=== PATIENT | male | born 1985 | race American Indian/Alaskan Native ===

== ENCOUNTER 2017-05-14 14:57 | Emergency (ER) | payer SELFPAY ==
[2017-05-14 16:32] LABS: Alanine Aminotransferase 16 units/L (7-56); Albumin 4.4 g/dL (3.9-5); Albumin/Globulin Ratio 1.8 %; Alkaline Phosphatase 69 units/L (35-129); Anion Gap 17 mmol/L; BUN/Creatinine Ratio 11.25; Blood Urea Nitrogen 9 mg/dL (9-20); Calcium 8.9 mg/dL (8.4-10.2); Carbon Dioxide 26 mmol/L (22-30); Glucose 113 mg/dL (75-100); Lipase 27 units/L (13-60); Potassium 4.1 mmol/L (3.6-5.0); Sodium 143 mmol/L (137-145); Total Protein 6.8 g/dL (6.3-8.2)
[2017-05-14 16:50] LABS: Basophils % (Auto) 0.7 % (0.0-1.8); Eosinophils % (Auto) 3.8 % (0.0-4.3); Hematocrit 43.8 % (35.5-45.6); Hemoglobin 14.5 gm/dl (11.8-15.2); Mean Corpuscular HGB Conc 33 % (32-34); Mean Corpuscular Hemoglobin 28 pg (28-32); Mean Corpuscular Volume 85 fl (84-94); Platelet Count 187 K/mm3 (140-440); Red Blood Count 5.14 M/mm3 (3.65-5.03); Red Cell Distribution Width 13.9 % (13.2-15.2); White Blood Count 4.7 K/mm3 (4.5-11.0)
[2017-05-14 17:54] LABS: Bilirubin,Urine NEG (Negative); Blood,Urine SM (Negative); Ketones,Urine TR mg/dL (Negative); Leukocyte Esterase,Urine NEG (Negative); Mucus,Urine 3+ /HPF; Nitrite,Urine NEG (Negative); Urobilinogen,Urine < 2.0 mg/dL (<2.0)
[2017-05-14 17:56] LABS: Creatine Kinase 176 units/L (55-170)
[2017-05-14] MEDS ORDERED: TORADOL IM ONE (18:06)
[2017-05-14 18:22] VITALS: BP 130/76
--- NOTE | 2017-05-14 18:40 | Ultrasound Report ---
FINAL REPORT EXAM: US ABDOMEN COMPLETE HISTORY: abd pain TECHNIQUE: Ultrasound examination of the abdomen PRIORS: None. FINDINGS: No abnormality in visualized portion of aorta, IVC, and liver. Normal-appearing right kidney, left kidney, spleen, and visualized portion of pancreas. No evidence of ascites. Normal gallbladder wall thickness. No pericholecystic fluid. No evidence of gallstone. Technologist reports a positive Leyva sign. Normal diameter common bile duct. IMPRESSION: Technologist reports positive Leyva sign. No definite sonographic gallbladder abnormality
--- NOTE | 2017-05-14 21:18 | XRay Report ---
FINAL REPORT EXAM: XR RIBS UNI W PA CHEST 3 RT HISTORY: rib pain TECHNIQUE: PA chest radiograph, AP and oblique views of the right rib cage PRIORS: None. FINDINGS: No mediastinal shift. Cardiac silhouette is not enlarged. No pneumothorax, effusion, or focal pulmonary opacity. No acute skeletal finding. IMPRESSION: No acute pulmonary finding or displaced rib fracture.
--- NOTE | 2017-05-14 22:30 | Emergency Department Report ---
Entered by RICARDA SOLER, acting as scribe for DEJUAN SHRESTHA NP. ED Abdominal Pain HPI - General Chief Complaint: Abdominal Pain Stated Complaint: SHARP PAIN IN RIB CAGE Time Seen by Provider: 05/14/17 15:49 Source: patient Mode of arrival: Ambulatory Limitations: No Limitations - History of Present Illness Initial Comments: This is a 32 year old male that is non-toxic, non ill appearing, in no acute distress with c/o sharp RUQ pain and right rib cage pain radiating into back 3 days ago. Patient reports he was sitting on the couch when the pain started. Patient reports 1 episode of vomiting 3 days ago. Patient denies headache, chest pain, stiff neck, nausea, vomiting, chills, trauma, SOB, fever, cough, numbness, and tingling. Patient denies any recent travels or long car rides. NKDA. Denies any past medical history. MD Complaint: abdominal pain (RUQ) Onset/Timin -: Gradual, days(s) Location: RUQ Radiation: back (right lower) Migration to: no migration Severity: moderate Severity scale (0 -10): 4 Quality: sharp Consistency: constant Improves With: nothing Worsens With: nothing Associated Symptoms: vomiting (3 days ago). denies: nausea, diarrhea, fever, chills, constipation, dysuria, hematemesis, hematochezia, melena, hematuria, anorexia, syncope - Related Data Previous Rx's Medication Instructions Recorded Last Taken Type Cyclobenzaprine [Flexeril] 10 mg PO TID PRN #15 tablet 05/14/17 Unknown Rx Naproxen [Naprosyn TAB] 500 mg PO BID #15 tablet 05/14/17 Unknown Rx Allergies Allergy/AdvReac Type Severity Reaction Status Date / Time shellfish derived Allergy Anaphylaxis Verified 05/14/17 15:21 ED Review of Systems Comment: All other systems reviewed and negative Constitutional: chills. denies: fever Eyes: denies: eye pain, eye discharge, vision change ENT: denies: ear pain, throat pain Respiratory: denies: cough, shortness of breath, wheezing Cardiovascular: denies: chest pain, palpitations Endocrine: no symptoms reported Gastrointestinal: abdominal pain (RUQ). denies: nausea, diarrhea Genitourinary: denies: urgency, dysuria Musculoskeletal: back pain (radiates to right side). denies: joint swelling, arthralgia, myalgia Skin: denies: rash, lesions Neurological: denies: headache, weakness, paresthesias Psychiatric: denies: anxiety, depression Hematological/Lymphatic: denies: easy bleeding, easy bruising ED Past Medical Hx - Past Medical History Additional medical history: heart murmur - Surgical History Past Surgical History?: No - Social History Smoking Status: Current Every Day Smoker Substance Use Type: Marijuana - Medications Home Medications: Home Medications Medication Instructions Recorded Confirmed Last Taken Type Cyclobenzaprine [Flexeril] 10 mg PO TID PRN #15 tablet 05/14/17 Unknown Rx Naproxen [Naprosyn TAB] 500 mg PO BID #15 tablet 05/14/17 Unknown Rx ED Physical Exam - General Limitations: No Limitations General appearance: alert, in no apparent distress - Head Head exam: Present: atraumatic, normocephalic, normal inspection - Eye Eye exam: Present: normal appearance, PERRL, EOMI. Absent: scleral icterus, conjunctival injection, nystagmus, periorbital swelling, periorbital tenderness Pupils: Present: normal accommodation. Absent: irregular - ENT ENT exam: Present: normal exam, normal orophraynx, mucous membranes moist, TM's normal bilaterally, normal external ear exam - Neck Neck exam: Present: normal inspection, full ROM. Absent: tenderness, meningismus, lymphadenopathy, thyromegaly - Respiratory Respiratory exam: Present: normal lung sounds bilaterally. Absent: respiratory distress, wheezes, rales, rhonchi, stridor, chest wall tenderness, accessory muscle use, decreased breath sounds, prolonged expiratory - Cardiovascular Cardiovascular Exam: Present: regular rate, normal rhythm, normal heart sounds. Absent: bradycardia, tachycardia, irregular rhythm, systolic murmur, diastolic murmur, rubs, gallop - GI/Abdominal GI/Abdominal exam: Present: soft, normal bowel sounds. Absent: distended, tenderness, guarding, rebound, rigid, diminished bowel sounds, hyperactive bowel sounds, hypoactive bowel sounds, organomegaly, mass, bruit, pulsatile mass , hernia - Expanded GI/Abdominal Exam Expanded GI/Abdominal exam: Absent: psoas sign, obturator sign, heel tap sign, Leyva's sign, Rovsing's sign, tenderness at Mcburney's Point, ascites - Rectal Rectal exam: Present: deferred - Extremities Exam Extremities exam: Present: normal inspection, full ROM, normal capillary refill. Absent: tenderness, pedal edema, joint swelling, calf tenderness - Back Exam Back exam: Present: normal inspection, full ROM. Absent: tenderness, CVA tenderness (R), CVA tenderness (L), muscle spasm, paraspinal tenderness, vertebral tenderness, rash noted - Neurological Exam Neurological exam: Present: alert, oriented X3, CN II-XII intact, normal gait, reflexes normal - Psychiatric Psychiatric exam: Present: normal affect, normal mood - Skin Skin exam: Present: warm, dry, intact, normal color. Absent: rash ED Course Vital Signs 05/14/17 05/14/17 05/14/17 15:23 17:20 17:25 Temperature 98.7 F 98 F Pulse Rate 80 68 Respiratory 17 16 16 Rate Blood Pressure 131/87 Blood Pressure 130/76 [Right] O2 Sat by Pulse 98 99 99 Oximetry 05/14/17 18:15 Temperature Pulse Rate Respiratory 18 Rate Blood Pressure Blood Pressure [Right] O2 Sat by Pulse Oximetry - Reevaluation(s) Reevaluation #2: 05/14/17 17:56 Patient is talking in full sentence and watching TV with no signs of distress noted. - Consultations Consultation #1: 05/14/17 17:55 Dr. Puente has been consulted with about patient signs and symptoms and EKG findings. R/O gallbladder. Agrees to the treatment plan of care. Denies concerns about cardiac or PE. ED Medical Decision Making - Lab Data Result diagrams: 05/14/17 15:52 05/14/17 15:58 - EKG Data Interpretation: normal EKG (with early repolarization) 05/14/17 18:09 Dr. Puente was presented with patient hx and symptoms in the ED and EKG findings. No concerns noted. - Medical Decision Making ED course: This is a 32-year-old male that presents with costochondritis 1- patient was examined by myself. Upon my exam there is negative Leyva's test or any abdominal signs. EKG has been obtained and consulted with Dr. Puente of patient clinical findings as well as laboratory and EKG findings. As per Dr. Puente no concerns with EKG. ultrasound of the abdomen has been obtained. Dictated by Dr. Kang. Impression; no definite gallbladder maladies. Normal gallbladder wall thickness. No pericholecystic fluid. No evidence of gallstones. Normal diameter common bile duct. 2- x-ray has been obtained of rib/chest. With normal findings. Dictated By radiologist. 3- CBC, CMP, troponin, d-dimer, UA, lipase has been obtained were all normal findings. 4- patient has been notified of all his lab results and imaging. No further questions noted by the patient. 5- I instructed the patient follow-up with a primary care doctor in 3-5 days and to observe symptoms of nausea, vomiting, fever, chills, increased abdominal pain, shortness of breath, chest pain, numbness or tingling and if symptoms present return to emergency room as was possible. 6- at time time of discharge, the patient does not seem toxic or ill in appearance. No acute signs of distress noted. Patient agrees to discharge treatment plan of care. No further questions noted by the patient. 7- patient was prescribed naproxen and Flexeril at the time of discharge. ED Disposition Clinical Impression: Costochondritis Disposition: DC-01 TO HOME OR SELFCARE Is pt being admited?: No Does the pt Need Aspirin: No Condition: Stable Instructions: Costochondritis (ED), Naproxen (By mouth) Additional Instructions: Follow-up with a primary care doctor in 3-5 days and to observe symptoms of nausea, vomiting, fever, chills, increased abdominal pain, shortness of breath, chest pain, numbness or tingling and if symptoms present return to emergency room as was possible. Take naproxen and Flexeril as prescribed. Do not operate any machinery while taking Flexeril due to sedation/drowsiness. Prescriptions: Cyclobenzaprine [Flexeril] 10 mg PO TID PRN #15 tablet PRN Reason: Muscle Spasm Naproxen [Naprosyn TAB] 500 mg PO BID #15 tablet Referrals: PRIMARY CAREMD [Primary Care Provider] - 3-5 Days HUMA LIN JR, MD [Staff Physician] - 3-5 Days [facility] [Outside] - 3-5 Days [facility] [Outside] - 3-5 Days Forms: Work/School Release Form(ED) This documentation as recorded by the KARLENE pagan PEARL,accurately reflects the service I personally performed and the decisions made by me,DEJUAN SHRESTHA NP.
== END 2017-05-14 22:50 | disposition home or self-care (01) ==
LOC: ED 14:57
DX: M94.0 Chondrocostal junction syndrome [Tietze] (principal); F17.200 Nicotine dependence, unspecified, uncomplicated
CPT/HCPCS: 36415; 71101; 76700; 80053; 81001; 82550; 82553; 83690; 84484; 85025; 85379; 93005; 93010; 96372; 99284; J1885

== ENCOUNTER 2019-04-01 09:28 | Emergency (ER) | payer OTHER ==
[2019-04-01 09:37] VITALS: BP 132/92
--- NOTE | 2019-04-01 10:30 | Emergency Department Report ---
ED ENT HPI - General Chief complaint: Sore Throat Stated complaint: SOB/COLD/FLU LIKE SYM Time Seen by Provider: 04/01/19 10:24 Source: patient Mode of arrival: Ambulatory Limitations: No Limitations - History of Present Illness Initial comments: 34-year-old -[place] male presents to the emergency room for one day complaint of shortness of breathe and nasal congestion or sore throat. Patient also complains of watery eyes headache as intermittent nausea. Patient denies any fever or chills no vomiting. Patient has no past medical history takes no medications on a daily basis has no known drug allergies. MD complaint: sore throat -: days(s) (1) Location: nose, throat Severity scale (0 -10): 8 Consistency: intermittent Associated Symptoms: cough, sore throat, rhinorrhea, other (nasal congestion) - Related Data Previous Rx's Medication Instructions Recorded Last Taken Type Cyclobenzaprine [Flexeril] 10 mg PO TID PRN #15 tablet 05/14/17 Unknown Rx Naproxen [Naprosyn TAB] 500 mg PO BID #15 tablet 05/14/17 Unknown Rx Cetirizine HCl [ZyrTEC 10mg rapdis] 10 mg PO QDAY #30 tab.rapdis 04/01/19 Unknown Rx Fluticasone [Flonase] 1 spray NS QDAY #1 bottle 04/01/19 Unknown Rx Ibuprofen [Motrin 600 MG tab] 600 mg PO Q8H PRN #30 tablet 04/01/19 Unknown Rx Ketotifen Fumarate [Zaditor] 1 drop OP QDAY PRN #1 bottle 04/01/19 Unknown Rx Allergies Allergy/AdvReac Type Severity Reaction Status Date / Time shellfish derived Allergy Anaphylaxis Verified 04/01/19 09:37 ED Dental HPI - General Chief complaint: Sore Throat Stated complaint: SOB/COLD/FLU LIKE SYM Time Seen by Provider: 04/01/19 10:24 Source: patient Mode of arrival: Ambulatory Limitations: No Limitations - Related Data Previous Rx's Medication Instructions Recorded Last Taken Type Cyclobenzaprine [Flexeril] 10 mg PO TID PRN #15 tablet 05/14/17 Unknown Rx Naproxen [Naprosyn TAB] 500 mg PO BID #15 tablet 05/14/17 Unknown Rx Cetirizine HCl [ZyrTEC 10mg rapdis] 10 mg PO QDAY #30 tab.rapdis 04/01/19 Unknown Rx Fluticasone [Flonase] 1 spray NS QDAY #1 bottle 04/01/19 Unknown Rx Ibuprofen [Motrin 600 MG tab] 600 mg PO Q8H PRN #30 tablet 04/01/19 Unknown Rx Ketotifen Fumarate [Zaditor] 1 drop OP QDAY PRN #1 bottle 04/01/19 Unknown Rx Allergies Allergy/AdvReac Type Severity Reaction Status Date / Time shellfish derived Allergy Anaphylaxis Verified 04/01/19 09:37 ED Review of Systems ROS: Stated complaint: SOB/COLD/FLU LIKE SYM Other details as noted in HPI Comment: All other systems reviewed and negative Constitutional: denies: chills, fever Eyes: denies: eye pain, eye discharge, vision change ENT: throat pain, congestion, other (rhinorrhea, sneezing) Respiratory: denies: cough, shortness of breath, wheezing Cardiovascular: denies: chest pain, palpitations Endocrine: no symptoms reported Gastrointestinal: nausea Genitourinary: denies: urgency, dysuria ED Past Medical Hx - Past Medical History Previous Medical History?: Yes Additional medical history: heart murmur - Surgical History Past Surgical History?: No - Social History Smoking Status: Current Every Day Smoker Substance Use Type: None - Medications Home Medications: Home Medications Medication Instructions Recorded Confirmed Last Taken Type Cyclobenzaprine [Flexeril] 10 mg PO TID PRN #15 tablet 05/14/17 Unknown Rx Naproxen [Naprosyn TAB] 500 mg PO BID #15 tablet 05/14/17 Unknown Rx Cetirizine HCl [ZyrTEC 10mg rapdis] 10 mg PO QDAY #30 tab.rapdis 04/01/19 Unknown Rx Fluticasone [Flonase] 1 spray NS QDAY #1 bottle 04/01/19 Unknown Rx Ibuprofen [Motrin 600 MG tab] 600 mg PO Q8H PRN #30 tablet 04/01/19 Unknown Rx Ketotifen Fumarate [Zaditor] 1 drop OP QDAY PRN #1 bottle 04/01/19 Unknown Rx ED Physical Exam - General Limitations: No Limitations General appearance: alert, in no apparent distress - Head Head exam: Present: atraumatic, normocephalic - Eye Eye exam: Present: normal appearance - ENT ENT exam: Present: mucous membranes moist, TM's normal bilaterally - Expanded ENT Exam Expanded Throat exam: Negative: tonsillar erythema, tonsillomegaly, tonsillar exudate - Neck Neck exam: Present: normal inspection, full ROM. Absent: tenderness, lymphadenopathy - Respiratory Respiratory exam: Present: normal lung sounds bilaterally. Absent: respiratory distress, wheezes, rales, rhonchi - Cardiovascular Cardiovascular Exam: Present: regular rate, normal rhythm. Absent: systolic murmur, diastolic murmur, rubs, gallop - GI/Abdominal GI/Abdominal exam: Present: soft, normal bowel sounds - Neurological Exam Neurological exam: Present: alert, oriented X3 - Psychiatric Psychiatric exam: Present: normal affect, normal mood - Skin Skin exam: Present: warm, dry, intact, normal color. Absent: rash ED Course Vital Signs 04/01/19 09:36 Temperature 97.8 F Pulse Rate 97 H Respiratory 20 Rate Blood Pressure 132/92 O2 Sat by Pulse 99 Oximetry ED Medical Decision Making - Medical Decision Making 34-year-old male comes in for sore throat shortness of breathe and nasal congestion or sneezing. Patient has tried [id number] ibuprofen and Robitussin. Patient be discharged home on Zyrtec, Flonase Zaditor eyedrops for watery eyes. Patient appears to have allergic rhinitis. Patient does work outside in construction. Critical care attestation.: If time is entered above; I have spent that time in minutes in the direct care of this critically ill patient, excluding procedure time. ED Disposition Clinical Impression: Allergic rhinitis Qualifiers: Allergic rhinitis trigger: unspecified Allergic rhinitis seasonality: seasonal Qualified Code(s): J30.2 - Other seasonal allergic rhinitis Disposition: DC-01 TO HOME OR SELFCARE Is pt being admited?: No Does the pt Need Aspirin: No Condition: Stable Instructions: Allergic Rhinitis (ED) Additional Instructions: Please take medication as prescribed. Follow up with the primary care provider or an roving hand if symptoms persist or gets worse. Prescriptions: Fluticasone [Flonase] 1 spray NS QDAY #1 bottle Ibuprofen [Motrin 600 MG tab] 600 mg PO Q8H PRN #30 tablet PRN Reason: Pain Ketotifen Fumarate [Zaditor] 1 drop OP QDAY PRN #1 bottle PRN Reason: Allergy Symptoms Cetirizine HCl [ZyrTEC 10mg rapdis] 10 mg PO QDAY #30 tab.rapdis Referrals: [facility] [Provider Group] - 3-5 Days Forms: Work/School Release Form(ED)
== END 2019-04-01 10:39 | disposition home or self-care (01) ==
LOC: ED 09:28
DX: J30.9 Allergic rhinitis, unspecified (principal); F17.200 Nicotine dependence, unspecified, uncomplicated; Z91.013 Allergy to seafood

== ENCOUNTER 2019-06-22 06:48 | Emergency (ER) | payer SELFPAY ==
[2019-06-22 08:37] VITALS: BP 145/88
--- NOTE | 2019-06-22 08:53 | Emergency Department Report ---
ED ENT HPI - General Chief complaint: Sore Throat Stated complaint: SORE THROAT Time Seen by Provider: 06/22/19 08:03 Source: patient Mode of arrival: Ambulatory Limitations: No Limitations - History of Present Illness Initial comments: This is a 34-year-old male nontoxic, well nourished in appearance, no acute signs of distress presents to the ED with c/o of sore throat. Patient describes sore throat as swallowing razer blades. Patient denies any fever, chills, headache, stiff neck, nausea, vomiting, chest pain, shortness of breath, numbness or tingling. Patient denies any drooling or hoarseness. Patient denies any allergies or significant past medical history. MD complaint: sore throat -: days(s) Location: throat Severity: mild Severity scale (0 -10): 8 Quality: aching Consistency: constant Improves with: none Worsens with: swallowing Associated Symptoms: pain with swallowing, sore throat. denies: fever, cough, gum swelling, toothache, tinnitus, hearing loss, discharge from ear, rhinorrhea - Related Data Previous Rx's Medication Instructions Recorded Last Taken Type Cyclobenzaprine [Flexeril] 10 mg PO TID PRN #15 tablet 05/14/17 Unknown Rx Naproxen [Naprosyn TAB] 500 mg PO BID #15 tablet 05/14/17 Unknown Rx Cetirizine HCl [ZyrTEC 10mg rapdis] 10 mg PO QDAY #30 tab.rapdis 04/01/19 Unknown Rx Fluticasone [Flonase] 1 spray NS QDAY #1 bottle 04/01/19 Unknown Rx Ibuprofen [Motrin 600 MG tab] 600 mg PO Q8H PRN #30 tablet 04/01/19 Unknown Rx Ketotifen Fumarate [Zaditor] 1 drop OP QDAY PRN #1 bottle 04/01/19 Unknown Rx Amoxicillin [Amoxicillin TAB] 875 mg PO BID #20 tablet 06/22/19 Unknown Rx Ibuprofen [Motrin] 600 mg PO Q8H PRN #20 tablet 06/22/19 Unknown Rx Allergies Allergy/AdvReac Type Severity Reaction Status Date / Time shellfish derived Allergy Anaphylaxis Verified 04/01/19 09:37 ED Dental HPI - General Chief complaint: Sore Throat Stated complaint: SORE THROAT Time Seen by Provider: 06/22/19 08:03 Source: patient Mode of arrival: Ambulatory Limitations: No Limitations - Related Data Previous Rx's Medication Instructions Recorded Last Taken Type Cyclobenzaprine [Flexeril] 10 mg PO TID PRN #15 tablet 05/14/17 Unknown Rx Naproxen [Naprosyn TAB] 500 mg PO BID #15 tablet 05/14/17 Unknown Rx Cetirizine HCl [ZyrTEC 10mg rapdis] 10 mg PO QDAY #30 tab.rapdis 04/01/19 Unknown Rx Fluticasone [Flonase] 1 spray NS QDAY #1 bottle 04/01/19 Unknown Rx Ibuprofen [Motrin 600 MG tab] 600 mg PO Q8H PRN #30 tablet 04/01/19 Unknown Rx Ketotifen Fumarate [Zaditor] 1 drop OP QDAY PRN #1 bottle 04/01/19 Unknown Rx Amoxicillin [Amoxicillin TAB] 875 mg PO BID #20 tablet 06/22/19 Unknown Rx Ibuprofen [Motrin] 600 mg PO Q8H PRN #20 tablet 06/22/19 Unknown Rx Allergies Allergy/AdvReac Type Severity Reaction Status Date / Time shellfish derived Allergy Anaphylaxis Verified 04/01/19 09:37 ED Review of Systems ROS: Stated complaint: SORE THROAT Other details as noted in HPI Constitutional: denies: chills, fever Eyes: denies: eye pain, eye discharge, vision change ENT: throat pain. denies: ear pain Respiratory: denies: cough, shortness of breath, wheezing Cardiovascular: denies: chest pain, palpitations Endocrine: no symptoms reported Gastrointestinal: denies: abdominal pain, nausea, diarrhea Genitourinary: denies: urgency, dysuria Musculoskeletal: denies: back pain, joint swelling, arthralgia Skin: denies: rash, lesions Neurological: denies: headache, weakness, paresthesias Psychiatric: denies: anxiety, depression Hematological/Lymphatic: denies: easy bleeding, easy bruising ED Past Medical Hx - Past Medical History Previous Medical History?: No Additional medical history: heart murmur - Surgical History Past Surgical History?: No - Social History Smoking Status: Light Tobacco Smoker - Medications Home Medications: Home Medications Medication Instructions Recorded Confirmed Last Taken Type Cyclobenzaprine [Flexeril] 10 mg PO TID PRN #15 tablet 05/14/17 Unknown Rx Naproxen [Naprosyn TAB] 500 mg PO BID #15 tablet 05/14/17 Unknown Rx Cetirizine HCl [ZyrTEC 10mg rapdis] 10 mg PO QDAY #30 tab.rapdis 04/01/19 Unknown Rx Fluticasone [Flonase] 1 spray NS QDAY #1 bottle 04/01/19 Unknown Rx Ibuprofen [Motrin 600 MG tab] 600 mg PO Q8H PRN #30 tablet 04/01/19 Unknown Rx Ketotifen Fumarate [Zaditor] 1 drop OP QDAY PRN #1 bottle 04/01/19 Unknown Rx Amoxicillin [Amoxicillin TAB] 875 mg PO BID #20 tablet 06/22/19 Unknown Rx Ibuprofen [Motrin] 600 mg PO Q8H PRN #20 tablet 06/22/19 Unknown Rx ED Physical Exam - General Limitations: No Limitations General appearance: alert, in no apparent distress - Head Head exam: Present: atraumatic, normocephalic - Expanded ENT Exam Expanded Ear exam: Present: normal external inspection Mouth exam: Present: normal external inspection. Absent: drooling, trismus, muffled voice Teeth exam: Present: normal inspection Throat exam: Positive: tonsillar erythema, tonsillomegaly, other (uvula midline. no abscess noted). Negative: tonsillar exudate, R peritonsillar mass, L peritonsillar mass - Neck Neck exam: Present: normal inspection, full ROM. Absent: tenderness, meningismus, lymphadenopathy - Extremities Exam Extremities exam: Present: normal inspection, full ROM - Back Exam Back exam: Present: normal inspection, full ROM - Neurological Exam Neurological exam: Present: alert, oriented X3, normal gait - Psychiatric Psychiatric exam: Present: normal affect, normal mood - Skin Skin exam: Present: warm, dry, intact, normal color. Absent: rash ED Course Vital Signs 06/22/19 08:36 Temperature 97.6 F Pulse Rate 69 Respiratory 14 Rate Blood Pressure 145/88 [Left] O2 Sat by Pulse 100 Oximetry - Reevaluation(s) Reevaluation #1: 06/22/19 08:51 Patient is speaking in full sentences with no signs of distress noted. ED Medical Decision Making - Medical Decision Making This is a 34-year-old male that presents with tonsillitis. Patient is stable was examined by me. There is no drooling. No tonsillar abscess noted. Uvula is midline. Vital signs are stable. Patient is not febrile and normal heart rate. Patient was instructed to Follow-up with a primary care doctor in 3-5 days or if symptoms worsen and continue return to emergency room as soon as possible. At time of discharge, the patient does not seem toxic or ill in appearance. No acute signs of distress noted. Patient agrees to discharge treatment plan of care. No further questions noted by the patient. Critical care attestation.: If time is entered above; I have spent that time in minutes in the direct care of this critically ill patient, excluding procedure time. ED Disposition Clinical Impression: Tonsillitis Pharyngitis Qualifiers: Pharyngitis/tonsillitis etiology: unspecified etiology Qualified Code(s): J02.9 - Acute pharyngitis, unspecified Disposition: TO HOME OR SELFCARE Is pt being admited?: No Does the pt Need Aspirin: No Condition: Stable Additional Instructions: Follow-up with a primary care doctor in 3-5 days or if symptoms worsen and continue return to emergency room as soon as possible. Prescriptions: Amoxicillin [Amoxicillin TAB] 875 mg PO BID #20 tablet Ibuprofen [Motrin] 600 mg PO Q8H PRN #20 tablet PRN Reason: Pain/Fever Referrals: [facility] GONZALE[facility] MD [Primary Care Provider] - 3-5 Days PRIMARY MD ERICK [Referring] - 3-5 Days NBA CÁRDENAS MD [Staff Physician] - 3-5 Days [facility] [Outside] - 3-5 Days [facility] [Outside] - 3-5 Days Forms: Work/School Release Form(ED)
== END 2019-06-22 09:07 | disposition home or self-care (01) ==
LOC: ED 06:48
DX: J03.90 Acute tonsillitis, unspecified (principal); F17.200 Nicotine dependence, unspecified, uncomplicated; Z91.013 Allergy to seafood